=== PATIENT | male | born 1985 | race Caucasian/White ===

== ENCOUNTER 2025-05-27 16:52 | Emergency (ER) | payer MEDICAID, SELFPAY ==
[2025-05-27] VITALS (10 sets, daily range): BP systolic 123–150; BP diastolic 80–88; PULSE 100–104; RESP 20; O2SAT 94–97
--- NOTE | ~2025-05-27 | XR_ITS ---
CHEST RADIOGRAPH CLINICAL HISTORY: AMS/weakness . COMPARISON: None available TECHNIQUE: Single portable view of the chest. FINDINGS The cardiomediastinal silhouette is unremarkable. The lungs are clear. IMPRESSION: No focal infiltrate or effusion. Reviewed, dictated and finalized at location A.
--- NOTE | ~2025-05-27 | CT_ITS ---
History: AMS PROCEDURE: CT head without contrast. COMPARISON: None TECHNIQUE: Axial imaging of the head performed from the skull base to the vertex without IV contrast. Sagittal a nd coronal reformations obtained. DLP: 681 mGy-cm FINDINGS: The ventricles are normal in size, shape and position. There is no mass, mass effect or midline shift. There is no abnormal extra-axial fluid collection or intracranial hemorrhage. Opacification of the right maxillary sinus. Remaining paranasal sinuses are unremarkable. The mastoid air cells are well aerated. No acute displaced fractures within the overlying cranium. Impression: No acute intracranial hemorrhage or suspicious mass effect. Inflammatory sinus disease Reviewed, dictated and finalized at location A. Impression: No acute intracranial hemorrhage or suspicious mass effect. Inflammatory sinus disease
--- OUTSIDE RECORDS SUMMARY | 2025-05-27 16:56 | XMS_ITS | Clinical Summary ---
Author Organization [facility] Address [address] [place] [id number] Care Team Providers Care Manager Solar Name Role Phone Alexis Barajas Primary Care Provider [phone] Social History Tobacco Use Types Packs/Day Years Used Date Smoking Tobacco: Never Assessed Sex and Gender Information Value Date Recorded Sex Assigned at Not on file Legal Sex Male 9:17 PM CDT Gender Identity Not on file Sexual Orientation Not on file Plan of Treatment Health Maintenance Due Date Last Done Comments Annual Physical 1986 Hepatitis C 2001 DTaP, Tdap and Td Vaccines ( 1 - Tdap) 2002 05/23/1988, 10/22/1984, 1983 Hepatitis B Vaccines (1 of 3 - 19+ 3-dose series) 2002 HPV Vaccines (1 - 3-dose SCD M series) 2010 COVID-19 Vaccine ( - 2023-2 5 season) 2024 Meningococcal B Vaccine Aged Out No l onger eligible based on patient's age to complete this topic Meningococcal Vaccine Aged Out No leslie christina eligible based on patient's age to complete this topic Pneumococcal Vaccine: Pediatrics (0 to 5 Years) and At-Risk Patients (6 to 49 Years) Aged Out No longer eligible b ased on patient's age to complete this topic RSV Immunizations Under 20 Months Aged Out No longer eligible b ased on patient's age to complete this topic Insurance [employer] Care Teams Manager Solar Relationship Specialty Start Date End Date Alexis Barajas PA [address] [place] [phone] PCP - General PHYSICIAN DOUBLE BACK OPERATOR 05/04/20
--- OUTSIDE RECORDS SUMMARY | 2025-05-27 16:56 | XMS_ITS | Encounter Summary ---
Author Organization [facility] Address [facility] [place] [address] Care Team Providers Care Acute Care Nurse Practitioner Name Role Phone Alexis Barajas Primary Care Provider [phone] Encounter Details Date Type Department Care Team (Late st Contact Info) Description 03/20/2019 Abstract SFL CONVERSION [address] [place] [address] , Generic Conversion, Social History Tobacco Use Types Packs/Day Years Used Date Smoking Tobacco: Never Assessed Sex and Gender Information Value Date Recorded Sex Assigned at Not on file Legal Sex Male 9:17 PM CDT Gender Identity Not on file Sexual Orientation Not on file documented as of this encounter Plan of Treatment Not on file documented as of this encounter Visit Diagnoses Not on filedocumented in this encounter Care Teams Acute Care Nurse Practitioner Relationship Specialty Start Date End Date Alexis Barajas PA [address] [place] [address] PCP - General PHYSICIAN LEVEL GLASS FORMING MACHINE OPERATOR 05/04/20 documented as of this encounter
--- NOTE | 2025-05-27 17:00 | ED_ITS ---
HPI - Altered Mental Status General Chief Complaint: Altered Mental Status Stated Complaint: intoxication Time Seen by Provider: 05/27/25 16:59 Source: patient and EMS Mode of arrival: EMS Limitations: altered mental status, clinical condition and intoxication History of Present Illness HPI narrative: Patient is a 39-year-old male with intoxication of alcohol and his home Ativan and Valium this morning. He was found to be in the heat of the sun today and brought in for probable dehydration and intoxication. He is not suicidal or homicidal. He is not hallucinating. He is having intoxication related altered mental status. No nausea vomiting or diarrhea. No chest pain or shortness of breath. He has been taking hydrocodone recreationally for many years. He was found to be passed out at a taco shop. Patient drinks 4-5 times out of the week and will have an eye director business development in the morning for regular drinking pattern. 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 MD complaint: altered mental status, confusion, decreased responsiveness and intoxication Onset (ago): day(s) ( One) Timing confirmed by: family member Severity: moderate Consistency of symptoms: waxing and waning Context: alcohol abuse, drug abuse ( hydrocodone) and history of similar presentation Associated symptoms: headaches, loss of appetite and syncope Treatments prior to arrival: IV fluid Related Data Home Medications ?Medication ?Instructions ?Recorded ?Confirmed ?Last Taken ?Type acetaminophen 325 mg tablet 650 mg PO Q6H PRN pain 05/30/20 Unknown History (Tylenol) calcium carbonate 500 mg PO DAILY 05/30/20 Unknown History omeprazole 20 mg tablet,delayed 20 mg PO DAILY 05/30/20 Unknown History release Allergies Allergy/AdvReac Type Severity Reaction Status Date / Time Penicillins Allergy Mild Unknown Verified 05/27/25 17:27 acetaminophen (From Allergy Unknown Verified 05/27/25 17:27 Darvocet-N 100) ibuprofen Allergy Unknown Verified 05/27/25 17:27 propoxyphene (From Allergy Unknown Verified 05/27/25 17:27 Darvocet-N 100) Review of Systems 2 Review of Systems: All systems reviewed & are unremarkable except as noted in HPI and below Constitutional: Constitutional: Reports no additional constitutional complaints Eyes: Eyes: Reports no additional eye complaints ENT: Reports system reviewed and no additional complaints, except as documented Cardiovascular: Cardiovascular: Reports no additional cardiovascular complaints Respiratory: Respiratory: Reports no additional respiratory complaints Gastrointestinal: Gastrointestinal: Reports no additional gastrointestinal complaints Genitourinary: Genitourinary: Reports no additional male genitourinary complaints Musculoskeletal: Musculoskeletal: Reports no additional musculoskeletal complaints Integumentary/Breasts: Skin/Breast: Reports system reviewed and no additional complaints, except as docu Neurologic: Reports system reviewed and no additional complaints, except as documented Psychiatric: Psychiatric: Reports no additional psychiatric complaints Endocrine: Endocrine: Reports no additional endocrine complaints Hematologic/Lymphatic: Hematologic/Lymphatic: Reports no additional hematologic/lymphatic complaints Allergic/Immunologic: Allergic/Immunologic: Reports no additional allergic/immunologic complaints PMFSH Past Medical History Medical History Anxiety and depression Hypercholesteremia Surgical History Surgical History H/O hernia repair History of colonoscopy Family History Family History Father Diabetes mellitus Heart disease Sibling Cancer Social History Social History Smoking packs per day: 1 Smoking cigarettes per day: 20.0 Smoking status: Current every day smoker Alcohol intake: current Alcohol use details: Occasionally Substance use: current Substance use type: marijuana Exam 2 Const: General: healthy appearing Nutritional Appearance: well nourished Limitations: altered mental status and other limitations ( intoxication) HENMT: Head: normal to inspection Ears: external ears normal F mercedes/Nose/Sinus: Normal external nose present Eyes: Conjunctivae: conjunctivae normal Pupils: Equal, round and reactive pupils present EOM: EOMs intact bilaterally Neck: Neck: normal visual inspection Chest: Chest palpation & inspection: normal inspection of the chest Resp: Effort & Inspection: normal respiratory effort and not labored A uscultation: clear to auscultation bilaterally and no crackles Cardio: Rate: regular rate Rhythm: regular rhythm Heart sounds: no murmurs GI: Inspection: non-distended GI Palp: Yes Soft to palpation and No Tenderness to palpation present (GI) Auscultation: normal bowel sounds : General: Yes bladder normal to palpation Back/Spine/Pelvis: Back: no CVA tenderness Skin: General skin exam: normal color Rashes: no rashes Wounds: no wounds Neuro: General: moves all extremities, no meningeal signs, no focal motor deficits and CN's II-XI intact bilaterally Cranial nerves: Yes Nystagmus not present Speech: normal speech Gait exam (Neuro): Normal gait present O ther: his altered mental status is because of intoxication and mixed with benzodiazepines; patient has confusion with white time air he is currently in and talking about things from 10 years ago or more to EMS Extrem: General: normal to inspection, no clubbing, cyanosis or edema and no pedal edema Psych: Mental Status: mental status grossly abnormal ( patient confused with time per day and current events/activities) Affect: normal affect A ttitude: cooperative Course Vital Signs Vital signs: Vital Signs Pulse Rate 102 H 05/27/25 17:47 Respiratory Rate 20 05/27/25 17:47 Pulse Oximetry 96 05/27/25 17:47 Oxygen Delivery Room Air 05/27/25 17:47 Pulse Rate 101 H 05/27/25 18:46 Respiratory Rate 20 05/27/25 18:46 Blood Pressure 123/81 05/27/25 18:46 Pulse Oximetry 97 05/27/25 18:46 Oxygen Delivery Room Air 05/27/25 18:46 MDM - Altered Mental Status MDM Narrative Medical decision making narrative: patient is a 39-year-old male with intoxication of alcohol and benzodiazepine with a syncopal episode and overheated in the sun. We will do a workup and give him IV fluids. CT head. Patient feels better at this time and is going to go home and take rest. He is AAO x4 now. He has mental decision-making capacity to make decisions for himself at this time. Lab Data Attestation: I reviewed the patient's lab results. 05/27/25 17:24 05/27/25 17:24 Labs: Lab Results 05/27/25 05/27/25 Range/Units 17:01 17:24 WBC 9.9 (4.8-10.8) K/mm3 RBC 5.29 (4.70-6.10) M/mm3 Hgb 16.5 (14.0-18.0) g/dL Hct 47.7 (40.0-54.0) % MCV 90.2 (78.0-102.0) fL MCH 31.2 H (27.0-31.0) pg MCHC 34.6 (32-36) g/dL RDW 12.2 (11.6-14.4) % Plt Count 339 (150-420) K/mm3 MPV 8.4 L (8.7-11.0) fl Immature Gran % (Auto) 1.1 H (0.0-0.0) % Neut % (Auto) 71.0 H (50.0-70.0) % Lymph % (Auto) 20.0 (18.0-42.0) % Robeson % (Auto) 6.5 (2.0-11.0) % Eos % (Auto) 0.9 L (1.0-6.0) % Baso % (Auto) 0.5 (0.0-1.0) % Lymph # (Auto) 1.99 (1.10-4.50) K/mm3 Robeson # (Auto) 0.65 (0.10-0.90) K/mm3 Eos # (Auto) 0.09 (0.02-0.50) K/mm3 Baso # (Auto) 0.05 (0.00-0.10) K/mm3 Abs Immat Gran (auto) 0.11 H (0.00-0.00) K/mm3 Absolute Neuts (auto) 7.05 (1.70-7.20) K/mm3 Absolute Nucleated RBC 0.00 (0.00-0.00) K/mm3 Nucleated RBC % 0.0 (0-0.0) % Sodium 140 (137-145) mmol/L Potassium 4.3 (3.4-5.0) mmol/L Chloride 106 (98-107) mmol/L Carbon Dioxide 26 (22-30) mmol/L Anion Gap 8 (4-12) mmol/L BUN 15 (9-20) mg/dL Creatinine 1.12 (0.7-1.3) mg/dL Estim Creat Clear Calc Not Reportable Estimated GFR > 60 (59 - ) Glucose 109 (65-110) mg/dL Calculated Osmolality 291 (285-295) mOsm/kg Lactic Acid 2.8 H (0.4-2.0) mmol/L Calcium 8.8 (8.4-10.2) mg/dL Total Bilirubin 0.7 (0.2-1.3) mg/dL AST 54 (17-59) U/L ALT 66 H (6-50) U/L Alkaline Phosphatase 74 (38-126) U/L Total Creatine Kinase 374 H (55-170) U/L Troponin I < 0.012 (0.000-0.034) ng/mL Total Protein 7.6 (6.3-8.2) g/dL Albumin 4.6 (3.5-5.1) g/dL Urine Color Yellow (Yellow) Urine Appearance Clear (Clear) Urine pH 6.0 (5.0-8.0) Ur Specific [place] 1.020 (1.010-1.020) Urine Protein 2+ H (Negative) Urine Glucose (UA) Negative (Negative) Urine Ketones Trace H (Negative) Ur Blood (Man) Negative (Negative) Urine Nitrate Negative (Negative) Urine Bilirubin Negative (Negative) Urine Urobilinogen 0.2 (0.2-1.0) mg/dL Leukocyte Esterase Rfl Negative (Negative) TINY/UL Urine RBC 0-2 (0-2) /hpf Urine WBC 0-3 (0-3) /hpf Ur Squamous Epith Cells Few (Few) /hpf Urine Bacteria Rare (None) /hpf Hyaline Casts 1-2 (None) /lpf Urine Opiates Screen Negative (Negative) Urine Methadone Screen Negative (Negative) Ur Barbiturates Screen Negative (Negative) Ur Phencyclidine Scrn Negative (Negative) Ur Amphetamine Screen Negative (Negative) U Benzodiazepines Scrn Positive A (Negative) Urine Cocaine Screen Negative (Negative) U Cannabinoids Screen Positive A (Negative) Ethyl Alcohol 58 (<10) mg/dL Imaging Data Attestation: I personally reviewed and interpreted this imaging study as follows: Radiologist's impression: CT scan of the head is negative for acute process chest x-ray is negative for acute process ECG Data EKG #1: Attestation: I personally reviewed and interpreted this ECG as follows: ECG completion date: 05/27/25 ECG completion time: 18:53 EKG Interpretation: tachycardia, sinus rhythm, no ectopy, no ST changes, normal QRS, normal QT and NL axis Discharge Plan Discharge Clinical Impression: Acute alteration in mental status, Dehydration Patient Disposition: Home Condition: Improved Instructions: Dehydration (ED), Altered Mental Status (ED) Patient Language: Comoran Prescriptions: No Action omeprazole 20 mg tablet,delayed release (DR/EC) 20 mg PO DAILY calcium carbonate 500 mg calcium (1,250 mg) tablet,chewable 500 mg PO DAILY acetaminophen [Tylenol] 325 mg tablet 650 mg PO Q6H PRN (Reason: pain) Follow-up/Referrals: UNKNOWN,DOCTOR [Non-Staff] - Time of Disposition: 18:55
--- NOTE | 2025-05-27 17:00 | ECG_ITS ---
Test Date: 2025-05-27 17:12:23 Measurements Intervals [place] Rate: 109 P: 29 NM: 137 QRS: 45 QRSD: 91 T: 3 QT: 314 QTc: 423 Interpretive Statements SINUS TACHYCARDIA NONSPECIFIC ST-T WAVE ABNORMALITY- INFERIOR LEADS BASELINE ARTIFACT- I, III, AVL, V1, V6 ABNORMAL ECG No previous ECG available for comparison Electronically Signed On 05-27-2025 18:56:42 CDT by Chaz Bush D.O.
[2025-05-27] MEDS: SODIUM CHLORIDE 0.9% IV 1,000 ML 999 ML IV CONT (17:09)
[2025-05-27 17:29] LABS: Hematocrit 47.7 % (40.0-54.0); Hemoglobin 16.5 g/dL (14.0-18.0); Immature Granulocyte Percent A 1.1 % (0.0-0.0); Lymphocytes Absolute Auto 1.99 K/mm3 (1.10-4.50); Mean Corpuscular HGB Conc 34.6 g/dL (32-36); Mean Corpuscular Hemoglobin 31.2 pg (27.0-31.0); Mean Corpuscular Volume 90.2 fL (78.0-102.0); Nucleated Red Blood Cells Absolute Auto 0.00 K/mm3 (0.00-0.00); Nucleated Red Blood Cells Perc 0.0 % (0-0.0); Platelet Count Result 339 K/mm3 (150-420); Red Blood Count 5.29 M/mm3 (4.70-6.10); White Blood Count 9.9 K/mm3 (4.8-10.8)
[2025-05-27 17:30] LABS: Add Urine Microscopic? YES; Appearance Urine Clear (Clear); Glucose Urine UA Negative (Negative); Leukocyte Esterase Ur Negative LEU/UL (Negative); Nitrate Urine Negative (Negative); Specific Grav Ur 1.020 (1.010-1.020)
[2025-05-27 17:43] LABS: Blood Urea Nitrogen 15 mg/dL (9-20); Carbon Dioxide 26 mmol/L (22-30); Chloride 106 mmol/L (98-107); Estimated Glomerular Filt Rate > 60; Glucose 109 mg/dL (65-110); Potassium 4.3 mmol/L (3.4-5.0)
[2025-05-27 17:44] LABS: Alanine Aminotransferase 66 U/L (6-50); Albumin Level 4.6 g/dL (3.5-5.1); Alkaline Phosphatase 74 U/L (38-126); Aspartate Amino Transferase 54 U/L (17-59); Bilirubin,Total 0.7 mg/dL (0.2-1.3); Calcium 8.8 mg/dL (8.4-10.2); Creatine Kinase 374 U/L (55-170); Total Protein 7.6 g/dL (6.3-8.2)
[2025-05-27 17:45] LABS: Anion Gap 8 mmol/L (4-12); Osmolality Calculated 291 mOsm/kg (285-295); Sodium 140 mmol/L (137-145)
--- OUTSIDE RECORDS SUMMARY | 2025-05-27 17:53 | XMS_ITS | Encounter Summary ---
Author Organization [facility] Address Replaced by [facility] [place] [address] Care Team Providers Care Job Counselor Name Role Phone Alexis Barajas Primary Care Provider [phone] Encounter Details Date Type Department Care Team (Late st Contact Info) Description 03/20/2019 Abstract SFL CONVERSION [address] [place] [address] , Generic Conversion, Social History Tobacco Use [...] on filedocumented in this encounter Care Teams Job Counselor Relationship Specialty Start Date End Date Alexis Barajas PA [address] [place] [phone] PCP - General PHYSICIAN INSULATION HOSEMAN 05/04/20 documented as of this encounter
--- OUTSIDE RECORDS SUMMARY | 2025-05-27 17:53 | XMS_ITS | Clinical Summary ---
Author Organization [facility] Address [address] [place] [address] Care Team Providers Care Stone Chimney Mason Name Role Phone Alexis Barajas Primary Care Provider [phone] Social History Tobacco Use Types Packs/Day Years [...] complete this topic Insurance [employer] Care Teams Stone Chimney Mason Relationship Specialty Start Date End Date Alexis Barajas PA [address] [place] [phone] PCP - General PHYSICIAN COMPOUNDER FLAVORINGS 05/04/20
[2025-05-27 18:24] LABS: Troponin I < 0.012 ng/mL (0.000-0.034)
[2025-05-27 18:45] LABS: Cannabinoid Screen Urine Positive (Negative)
== END 2025-05-27 19:13 | disposition home or self-care (01) ==
PROVIDERS: Emergency Provider Emergency Medicine; PCP Physician Assistant
DX: R41.82 Altered mental status, unspecified (principal); E86.0 Dehydration; F17.210 Nicotine dependence, cigarettes, uncomplicated
CPT/HCPCS: 36415; 70450; 71045; 80053; 80307; 81001; 82077; 82550; 83605; 84484; 85025; 93005; 96360; 99284; J7030